=== PATIENT | male | born 1980 | race Caucasian/White ===

== ENCOUNTER 2019-01-23 21:46 | Emergency (ER) | payer OTHER ==
[~2019-01-23] VITALS: Ht 172.7 cm; Wt 100.0 kg
[2019-01-23] MEDS ORDERED: HYDR-4061 PO (22:33)
[2019-01-23] MEDS ORDERED: POTA25TA7 PO (22:33)
[2019-01-23] MEDS ORDERED: BUME0.5T11 PO (22:33)
[2019-01-23] MEDS ORDERED: KETOROLAC TROMETHAMINE 60 MG/2 ML VIAL IM ONE (23:45)
[2019-01-24] MEDS ORDERED: HYDROCODONE/ACETAMINOPHEN 5-325 MG TABLET PO ONE
[2019-01-24 00:10] VITALS: BP 128/79
== END 2019-01-24 00:10 | disposition home or self-care (01) ==
LOC: EMS 21:54
DX: G89.18 Other acute postprocedural pain (principal); I25.10 Atherosclerotic heart disease of native coronary artery without angina pectoris; F17.210 Nicotine dependence, cigarettes, uncomplicated; Z76.0 Encounter for issue of repeat prescription; Z79.899 Other long term (current) drug therapy
CPT/HCPCS: 96372; 99283; J1885